=== PATIENT | male | born 1975 | race Caucasian/White ===

== ENCOUNTER 2016-12-03 21:08 | Emergency (ER) | payer BC ==
[2016-12-03] MEDS ORDERED: KETOROLAC TROMETHAMINE 60 MG/2 ML VIAL ONE (21:47)
[2016-12-03 21:55] LABS: SPECIFIC GRAVITY 1.025 (1.001-1.030); URINE APPEARANCE SL CLOUDY; URINE BILIRUBIN NEGATIVE (NEGATIVE); URINE BLOOD 2+ (NEGATIVE); URINE COLOR DARK YELLOW; URINE GLUCOSE (UA) NEGATIVE (NEGATIVE); URINE LEUKOCYTE ESTERASE TRACE (NEGATIVE); URINE NITRITE NEGATIVE (NEGATIVE); URINE PROTEIN 1+ (NEGATIVE); URINE UROBILINOGEN NORMAL (0-1 mg/dl)
[2016-12-03 22:08] LABS: URINE BACTERIA RARE; URINE EPITHELIAL CELLS 0-2 /hpf; URINE MUCUS 1+; URINE RBC 0-2 /hpf; URINE WBC 0-2 /hpf
[2016-12-03] MEDS ORDERED: HYDROCODONE/ACETAMINOPHEN 5/325MG TABLET ONE (22:12)
[2016-12-03] MEDS ORDERED: TAMSULOSIN HCL 0.4 MG CAPSULE.DR ONE (22:12)
--- NOTE | 2016-12-04 08:30 | CT ---
Exam Type: ABD/PELVIS W/O CON Date and Time: 12/03/2016 9:47 PM Clinical information: Left flank pain with history of kidney stones. Comparison: To 2012. Procedure: Imaging device: [employer] Aquilion [address] scanner 1 mm axial images were obtained through the abdomen and pelvis. Stacked reconstructed 3, 4 and 5 mm images were photographed in the axial coronal and sagittal planes. No oral contrast was utilized for this examination. Exam: Without intravenous contrast. FINDINGS: Lung bases:The visualized lung bases appear to be appropriate with no mass, effusion or consolidation visualized. Liver: A small low-attenuation focus within the left hepatic lobe may reflect a small cyst though is too small to classify by CT criteria. Spleen: The spleen is homogeneous and does not appear to be enlarged. Gallbladder: Normal without enlargement or evidence of adjacent inflammatory changes. Pancreas: Normal without enlargement or evidence of adjacent inflammatory changes. Adrenal glands: Normal without enlargement or evidence of adjacent inflammatory changes. Abdominal aorta: Mild atherosclerotic vascular calcification is seen. No focal aneurysm is visualized. Kidneys: The kidneys are of asymmetric size with the left kidney appearing larger than the right. There is evidence of an 8 mm intrarenal calculus seen within the inferior pole of the left kidney. A large calculus is also identified within the proximal left ureter at the ureteropelvic junction measuring transversely 7 mm in size and approximate 9 mm in length. There is moderate associated hydronephrosis observed. Bowel structures: The visualized bowel is of normal caliber without evidence of dilatation or obstruction. No free fluid or mesenteric inflammatory changes are identified. Appendix: The appendix is well-visualized and appears to be of normal caliber. No periappendiceal inflammatory changes or CT findings of appendicitis are currently observed. Bladder: Decompressed. Hernia: A fat filled umbilical hernia is identified. Adenopathy: No significant enlarged adenopathy is visualized. Osseous structures: No discrete osseous abnormalities are identified. Pelvic structures: No discrete pelvic abnormalities are visualized in this examination. IMPRESSION: 1. A large left-sided intrarenal calculus with a 7 x 9 mm calculus within the proximal left ureter at ureteropelvic junction with moderate associated left-sided hydronephrosis. 2. A normal appearance of the appendix without current CT evidence of appendicitis. 3. A small fat filled umbilical hernia. 4. A small low-attenuation focus within the left hepatic lobe which may reflect a small cyst, though is too small to classify by CT criteria. The findings were called to the emergency room at 2221 hours, 12/03/2016, by [facility].
== END 2016-12-03 22:46 | disposition home or self-care (01) ==
LOC: ED 21:08
DX: N20.0 Calculus of kidney (principal); I10 Essential (primary) hypertension; F17.210 Nicotine dependence, cigarettes, uncomplicated; Z87.442 Personal history of urinary calculi
CPT/HCPCS: 87086; 81001; 74176; 99283 ×2; 96372; J1885; A9270